=== PATIENT | female | born 1950 ===

== ENCOUNTER → 2021-03-20 | Outpatient (CLI) | payer MEDICARE, BC ==
--- NOTE | 2021-03-21 10:55 | KCIC ---
CT LOW DOSE LUNG SCREEN INDICATION: Smoker, hx. renal CA, family hx. lung disease. Smoker 45-50 yrs., 1pk/day. COMPARISON STUDY: None. TECHNIQUE: Unenhanced axial images were obtained through the lungs and upper abdomen using low dose technique. Coronal and sagittal multiplanar reformatted images were also obtained. PQRS compliance statement: One or more of the following individualized dose reduction techniques were utilized for this examinat ion: 1. Automated exposure control 2. Adjustment of the mA and/or kV according to patient size 3. Use of iterative reconstruction technique FINDINGS: Lung Nodules: Left lower lobe 5 mm subpleural solid nodule (series 6 image 232). Lungs and Airways: No pulmonary mass or consolidation. Normal central airways. Pleura: Normal pleural spaces. Heart and Mediastinum: The visualized portions of the thyroid gland are normal in size and attenuatio n. No axillary or supraclavicular lymphadenopathy. No mediastinal, hilar or retrocrural lymphadenopat hy. The heart and pericardium are within normal limits. The great vessels of the thorax are normal. Abdomen: Numerous punctate pancreatic calcifications, consistent with chronic pancreatitis. Bones and Soft Tissues: Degenerative changes of the spine. IMPRESSION: Left lower lobe 5 mm solid pulmonary nodule. Lung-RADS Category: 2 Management Recommendation: Follow up low-dose chest CT in one year. Electronically signed by: Dru Fenton MD (03/21/2021 10:53 AM) [facility]
== END ==
LOC: KCIC CT 11:40
PROVIDERS: ATTEND Family Medicine
DX: R91.1 Solitary pulmonary nodule (principal); K86.89 Other specified diseases of pancreas; M47.819 Spondylosis without myelopathy or radiculopathy, site unspecified; F17.210 Nicotine dependence, cigarettes, uncomplicated; Z85.53 Personal history of malignant neoplasm of renal pelvis; Z83.6 Family history of other diseases of the respiratory system
CPT/HCPCS: 71271